=== PATIENT | male | born 1995 | race Caucasian/White ===

== ENCOUNTER 2020-04-25 09:17 | Emergency (ER) | payer SELFPAY ==
[2020-04-25] MEDS ORDERED: Lidocaine 1% w/Epinephrine 1:100K 30 ML VIAL ONE (09:31)
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
[2020-04-25] MEDS ORDERED: Bacitracin 1 PK ONE (09:45)
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
[2020-04-25] MEDS ORDERED: Boostrix 0.5 ML VIAL ONE (09:51)
== END 2020-04-25 12:15 | disposition home or self-care (01) ==
LOC: NAV ERS 09:17
DX: S01.01XA Laceration without foreign body of scalp, initial encounter (principal); S30.810A Abrasion of lower back and pelvis, initial encounter; F10.129 Alcohol abuse with intoxication, unspecified; Q76.49 Other congenital malformations of spine, not associated with scoliosis; Z23 Encounter for immunization; V87.8XXA Person injured in other specified noncollision transport accidents involving motor vehicle (traffic), initial encounter
CPT/HCPCS: 12002; 70450; 72125; 90471; 90715; J2001